=== PATIENT | female | born 1990 | race Caucasian/White ===

== ENCOUNTER 2022-08-10 14:04 | Outpatient (CLI) | payer OTHER, SELFPAY ==
[2022-08-10 19:09] LABS: Cholesterol* 152 mg/dL (90-199)
[2022-08-10 19:10] LABS: Glucose* 77 mg/dL (60-115); HDL Cholesterol* 63 mg/dL (>=50); LDL Cholesterol Calculated 78 mg/dL (<100); Triglycerides* 57 mg/dL (40-149)
[2022-08-10 20:59] LABS: Chlamydia DNA Amplified* NOT DETECTED (No Detected); GC DNA Amplified* NOT DETECTED (No Detected)
== END 2022-08-10 14:05 | disposition home or self-care (01) ==
PROVIDERS: Visit Provider Registered Nurse
DX: Z01.419 Encounter for gynecological examination (general) (routine) without abnormal findings (principal); R30.0 Dysuria; Z11.3 Encounter for screening for infections with a predominantly sexual mode of transmission; Z13.6 Encounter for screening for cardiovascular disorders; Z13.1 Encounter for screening for diabetes mellitus
CPT/HCPCS: 80061; 82947; 87086; 87491; 87591

== ENCOUNTER 2022-10-19 09:59 | Outpatient (CLI) | payer BC, SELFPAY ==
--- NOTE | 2022-10-19 10:00 | CRLHL7_ITS ---
For Patients: As a result of the Cures Act, medical imaging exams and procedure reports are released immediately into your electronic medical record. You may view this report before your referring provider. If you have questions, please contact your health care provider. Indication: SINUSITIS Technique: Performed without IV contrast Comparison: None available Findings: Frontal sinuses: Near complete opacification of the left frontal sinus and complete opacification of the diminutive right frontal sinus. Ethmoid sinuses: Near complete opacification of the ethmoid sinuses bilaterally. Maxillary sinuses: Near complete opacification of both maxillary sinuses. The maxillary sinus drainage pathways are obstructed on both sides. Sphenoid sinuses: Moderate opacification of the right sphenoid sinus and mild mucosal thickening within the left sphenoid sinus. Obstructed sphenoethmoidal recesses. Nasal Cavity: Leftward deviation of the nasal septum with a left-sided nasal septal spur. Soft tissue density within the nasal cavity bilaterally. No TMJ abnormalities identified. The visualized portions of the orbits, intracranial contents and upper soft tissue neck are grossly negative. Impression: 1. Severe bilateral sinus disease with obstruction of the drainage pathways. 2. Leftward deviation of the nasal septum with a left-sided nasal septal spur and nasal polyps. Please note that all CT scans at this facility use dose modulation, iterative reconstruction, and/or weight-based dosing when appropriate to reduce radiation dose to as low as reasonably achievable. Dictated by Farzad Castillo MD @ 10/19/2022 11:24:59 AM (Electronically Signed)
== END 2022-10-19 10:00 | disposition home or self-care (01) ==
LOC: CT 10:00
PROVIDERS: Visit Provider Otolaryngology
DX: J32.9 Chronic sinusitis, unspecified (principal); J34.2 Deviated nasal septum
CPT/HCPCS: 70486

== ENCOUNTER 2022-12-28 11:09 | Day surgery (SDC) | payer BC, SELFPAY ==
[2022-12-28] VITALS (14 sets, daily range): BP systolic 112–140; BP diastolic 69–100; PULSE 67–87; RESP 12–18; TEMP 36.3–36.6; O2SAT 94–100; BMI 26.3
[2022-12-28] MEDS: LACTATED RINGERS 1000 ML 1,000 ML 100 ML IV (06:50)
[2022-12-28 11:39] LABS: HCG Qualitative* Negative (Negative)
--- NOTE | 2022-12-28 11:42 | W.ANESCHARGE ---
Anesthesia Charges Start Date/Time Anesthesia Start Date: 12/28/22 Anesthesia Start Time: 12:42 Stop Date/Time Anesthesia Stop Date: 12/28/22 Anesthesia Stop Time: 13:46
[2022-12-28] MEDS: SODIUM CHLORIDE 0.9 % (FLUSH) 10 ML SYRINGE IVF (11:49)
[2022-12-28] MEDS: OXYMETAZOLINE 0.05% NASAL SPRAY 2 SPRAY NOSTRIL-B (12:09)
--- NOTE | 2022-12-28 12:55 | SUR.OPER ---
PATIENT QUESTIONS ANSWERED SATISFACTORILY PREOPERATIVELY. PATIENT BROUGHT TO OR #2 PER CART. Patient positioned supine on OR #2 bed. Perioperative team tucked arms bilaterally at patient side with drawsheet. ? Final approval of positioning by surgeon.
[2022-12-28] MEDS: COCAINE HCL 4 % 4 ML SOLUTION NOSTRIL-B (13:00)
[2022-12-28] MEDS: BUPIVACAINE 0.5%/EPINEPHRINE 0.9 MG (30.9 ML) INJECTION (13:01)
[2022-12-28] MEDS: MUPIROCIN 1 GM PACKET 1 APPLIC TOPICAL (13:03)
--- NOTE | 2022-12-28 13:47 | W.ANESCHARGE ---
Anesthesia Charges Start Date/Time Anesthesia Start Date: 12/28/22 Anesthesia Start Time: 12:42 Stop Date/Time Anesthesia Stop Date: 12/28/22 Anesthesia Stop Time: 13:46
[2022-12-28] MEDS: fentaNYL 100 MCG/2 ML inj 50 MCG IVP ×2 (13:58→14:07)
--- NOTE | 2022-12-28 14:12 | P.ENTPROC_ITS ---
Procedure Note Date of procedure: 12/28/22 Procedure: Preop diagnosis septal deviation nasal obstruction inferior turbinate hypertrophy, nasal polyposis, pansinusitis. Postoperative diagnosis same. Procedure nasal septoplasty, submucous partial resection inferior turbinates, endoscopic bilateral nasal polypectomy, maxillary antrostomies with tissue removal, ethmoidectomies complete, sphenoidotomies, and bilateral frontal sinus balloon dilation. Note that the [employer] image guidance system and endoscopies was used throughout the procedure. After general endotracheal an anesthesia was induced the patient was prepped draped usual fashion and good registration was obtained. The nose was decongested and injected. A right hemitransfixion incision was made. Left anterior and posterior tunnels were created. A vertical incision was made to the cartilage and a right posterior tunnel created. The left area 4 5 impaction was resected by cutting above and below with an angle scissors and the piece was removed with the Pedro forceps. A large piece of this bone and cartilage was trimmed and returned to the posterior intraseptal space. The hemitransfixion was closed with 2 4-0 chromic sutures. Stab incision was made in the anterior of the right inferior turbinate a tunnel created with a Winkler dissector. The carl bone was outfractured and a conservative anterior submucous resection performed with Amni forceps. The Coblation was used to cauterize intramurally along the inferior 10%. This was repeated on the left side in identical fashion. Attention was then turned to the left side of the nose. Several visible polyps at the middle meatal region were removed. The inferior 3rd of the uncinate process was taken down and 9 mm antrostomy was created the maxillary sinus. This was a initially occluded by polypoid tissue which was removed. A moderate amount of polypoid tissue was removed from the area surrounding the os as well as the floor of the sinus. The ethmoid bulla was taken down and dissection carried out in an anterior to posterior direction removing all visible polyp tissue. Sphenoid sinus was entered again using image guidance and a large amount of inspissated mucus was aspirated. The frontal balloon was placed into the frontal recess and again using image guidance was guided into the frontal sinus. Dilation was obtained at the opening into the frontal sinus and then in the sinus itself. Inspissated mucus was removed from the os after this was done. Essentially all of the previous procedures were performed on the right side as well with similar findings and identical fashion. Septal stents were secured with 3-0 nylon suture. Merocel packing was placed in the middle meatus on each side. The patient procedure well was taken recovery in satisfactory condition. Blood loss during procedure was less than 25 mL. Surgeon: Arnold Ivy MD
[2022-12-28] MEDS: ACETAMINOPHEN 325 MG TABLET PO (15:19)
[2022-12-28] MEDS: IBUPROFEN 200 MG TABLET PO (15:19)
== END 2022-12-28 15:47 | disposition home or self-care (01) ==
LOC: OR 11:10
PROVIDERS: Anesthesiology; Visit Provider Otolaryngology
PROC: (CPT 31231; principal; 2022-12-28 12:30)
DX: J34.2 Deviated nasal septum (principal); J34.3 Hypertrophy of nasal turbinates; J33.0 Polyp of nasal cavity; J32.4 Chronic pansinusitis
CPT/HCPCS: 30520; 30140; 31237; 31267; 31253; 31287; 160; 84703; 88305; A9270; C1726; J0330; J1100; J2250; J2405; J2704; J3010; J7120

== ENCOUNTER 2024-11-11 13:38 | Outpatient (CLI) | payer BC, SELFPAY | END 2024-11-11 13:39 | disposition home or self-care (01) | LOC: NFLDREF 11-14 08:31 | PROVIDERS: Visit Provider Nurse Practitioner Family | DX: N30.90 Cystitis, unspecified without hematuria (principal); B96.20 Unspecified Escherichia coli [E. coli] as the cause of diseases classified elsewhere | CPT/HCPCS: 87086 ==

== ENCOUNTER 2025-03-15 09:46 | Emergency (ER) | payer BC, SELFPAY ==
--- OUTSIDE RECORDS SUMMARY | 2025-03-15 09:48 | XMS_ITS | Clinical Summary ---
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 One for home and one for car 2 Inhaler 2 4 Active pseudoephedrine (SUDAFED) 60 mg tabletIndicatio ns:Sinusitis Take 1 tablet by mouth every 6 hours if needed for Nasal Congestion. 30 tablet 0 4 Active fluticasone-flower meterol (ADVAIR DISKUS) 250-50 mcg/Dose diskus inhalerIndicati ons:Asthma flare, mild persistent Inhale 1 Puff by mouth every 12 hours. 1 Inhaler 5 5 Active triamcinolone (ARISTOCORT; KENALOG) 0.1 % creamIndication s:Atopic dermatitis and related condition Apply to affected area(s) topically twice daily 30 g 0 5 Active fluticasone (50 mcg per actuation) nasal solution (FLONASE)Indica tions:Allergic rhinitis, unspecified allergic rhinitis type Inhale 1 [place] into both nostrils once daily. 1 Bottle 5 5 Active norgestimate-et hinyl estradiol (TRINESSA) 0.18/0.215/0.25 mg-35 mcg (28) tabletIndicatio ns:Contraceptio n Take 1 tablet by mouth once daily. Continuously x 3 months, then withdrawal bleeding week, and restart cycle. 3 Package 0 6 Active Active Problems Problem Noted Date Diagnosed Date Asthma 09/29/2013 Viral warts, unspecified 05/13/2007 Other atopic dermatitis and related conditions 0 04/22/2007 Attention deficit disorder without mention of hy peractivity 11/27/2005 Overview (11/27/2005): Attention Deficit Disorder OTITIS EXTERNA 03/14/2005 ATTENTION DEFICIT DISORDER 12/04/1999 Resolved Problems Problem Noted Date Diagnosed Date Resolved Date Regular astigmatism 03/22/2006 05/27/20 08 Myopia 03/22/2006 11/10/2012 PHARYNGITIS - ACUTE 05/02/2005 03/27/20 24 Immunizations Immunization Administration Dates Next Due DTP 04/22/1992,04/07/1991,02/04/1991 ,1990 DTaP 11/07/1995 HIB PRP-OMP (PedvaxHIB) 10/09/1993,04/07/1991,,1990 Hepatitis B (Peds) 11/29/1994,06/29/1994, 994 Human Papilloma Virus Vaccine 10/24/2007, 007,04/22/2007 Influenza, IIV3 (Age >=3 years) 09/29/2013,07/01,07/01/2007 Influenza, IIV4 06/28/2015,07/12/2014 MMR 11/16/2002,01/12/1992 Meningococcal Vaccine (Menactra) 04/22/2007 Oral Polio Vaccine 11/07/1995,04/07/1991, 991,1990 Td (Age >=7 Years) 11/16/2002 Tdap 09/29/2013 Family History Medical History Relation Name Comments Genetic Other diabetes - gran dfather~thyroid-mother Relation Name Status Comments Other Social History Tobacco Use Types Packs/Day Years Used Date Smoking Tobacco: Some Days Cigarettes Smokeless Tobacco: Never Tobacco Cessation:Ready to Q uit: Yes; Counseling Given: Yes Comments:Dad smokes outside Alcohol Use Standard Drinks/Week Comments Yes 0 (1 standard drink = 0.6 oz pur e alcohol) Social Comments No Sex and Gender Information Value Date Recorded Sex Assigned at Not on file Legal Sex Female 5:19 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 Gender Identity Not on file Sexual Orientation Not on file Obstetrics History Last Filed Vital Signs Vital Sign Reading Time Taken Comments Blood Pressure 110/68 07/22/2015 10:30 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 Pulse 78 07/22/2015 10:30 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 Temperature 36.8 C (98.3 F) 07/12/2014 1:50 PM WEB ANALYTICS SPECIALIST Respiratory Rate 16 12/08/2002 12:0 0 AM CDT Oxygen Saturation 99% 07/12/2014 1:50 PM WEB ANALYTICS SPECIALIST Inhaled Oxygen Concentration - - Weight 49.4 kg (108 lb 14.4 oz) 06/28/2015 8:20 AM CDT Height 165.1 cm (5' 5) 09/29/2013 12:5 0 PM WEB ANALYTICS SPECIALIST Body Mass Index 18.12 09/29/2013 12:50 PM WEB ANALYTICS SPECIALIST Plan of Treatment Health Maintenance Due Date Last Done Comments Depression screening for age 12+ 2002 HIV for age 15-65 2005 BMI (ht and wt on same day) for age 18+ 2008 Hepatitis C screening for age 18-79 2008 Tetanus booster 09/29/2023 09/29/2013, 11/16/2002 Pap test for age 21-65 11/26/2023 , 11/25/2020, 04/01/2013 ([facility] COVID-19 vaccine series ( season) 2024 Influenza Vaccine (#1) 2025 5, 07/12/2014, 09/29/2013, Additional history exists Hepatitis B series for 19+ Completed 11/29, 06/29/1994, 05/31/1994 Pneumococcal series for age 6-49 Aged Out No longer eligible based on patient's age to complete this topic Procedures Procedure Name Priority Date/Time Associated Diagnosis Comments ROOM COOLER INSTALLER THIN PREP PAP SCREEN IMAGED Routine 11/25/2020 12:00 PM CDT from Last 3 Months or Most Recently Relevant to Health Maintenance Results * ROOM COOLER INSTALLER THIN PREP PAP SCREEN IMAGED (11/25/2020 12:00 PM CDT) Case Report Gynecologic Cytology Report Case: [id number] Authorizing Provider: Madonna Solorzano CNM Collected: 11/25/2020 1200 Ordering Location: [facility] Received: 11/28/2020 0946 First Screen: Jeimy Lim Specimen: ROOM COOLER INSTALLER ThinPrep Vial Screening, Cervical/Vaginal 12/06/2020 11:46 AM CDT [facility] INTERPRETATION/ RESULT NEGATIVE FOR INTRAEPITHELIAL LESION OR MALIGNANCY (NIL) (none) 12/06/2020 11:46 AM CDT [facility] [employer] [facility] ENTRAL LABORATORY at 1146 CDT SPECIMEN ADEQUACY Satisfactory for evaluation Endocervical component present 12/06/2020 11:46 AM CDT [facility] [employer] [facility] HPV REQUEST HPV and PAP 12/06/2020 11:46 AM CDT [facility] [employer] [facility] Date of LMP 09/14/2020 12/06/2020 11:46 AM CDT [facility] [employer] [facility]ORY Menstrual Status 12/06/2020 11:46 AM CDT [facility] Additional Information 12/06/2020 11:46 AM CDT [facility] Comment: Interpreted at [facility], Central Laboratory - [address] [address] Automated Review Successful 12/06/2020 11:46 AM CDT [facility] [employer] [facility] Comment:Specimen processed s uccessfully by automated machining department supervisor device, ThinPrep Imaging System, [employer] ANCILLARY TESTING ROOM COOLER INSTALLER HPV Ordered, Please see separate report 12/06/2020 11:46 AM CDT [facility] Note The pap test is a screening technique, not a diagnostic procedure. It is used primarily to screen for squamous cancers and precursor lesions. Published studies have shown that it is subject to both false negative and false positive results. The pap test should not be used as the sole means to diagnose or exclude pre-malignant and malignant lesions. 12/06/2020 11:46 AM CDT [facility] Other (Cervical/Vagina l) 11/25/2020 12:00 PM CDT 11/28/2020 9:46 AM CDT us Madonna Solorzano CNM PATHOLOGY/CYTOLOGY Final Re sult [facility] [address] [place] [address], [place] from Last 3 Months or Most Recently Relevant to Health Maintenance Insurance 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 PCP - General 12/13/16
[2025-03-15 10:10] VITALS: BP 128/86; PULSE 77; RESP 16; TEMP 36.4; O2SAT 97; BMI 27.9
--- NOTE | 2025-03-15 10:18 | CRLHL7_ITS ---
For Patients: As a result of the Cures Act, medical imaging exams and procedure reports are released immediately into your electronic medical record. You may view this report before your referring provider. If you have questions, please contact your health care provider. INDICATION: fall from standing on wrist x2days ago; wrist pain, swelling. (Sic) COMPARISON: None available. TECHNIQUE: Three views of the right wrist. FINDINGS: Mineralization: Normal. Alignment: Normal. Bones and Joints: No fracture is identified. Soft Tissues: Unremarkable. IMPRESSION: No acute traumatic injury of the right wrist is identified. Dictated by Dung Mclean MD @ 03/15/2025 10:48:00 AM (Electronically Signed)
--- NOTE | 2025-03-15 10:26 | CRLHL7_ITS ---
For Patients: As a result of the Cures Act, medical imaging exams and procedure reports are released immediately into your electronic medical record. You may view this report before your referring provider. If you have questions, please contact your health care provider. INDICATION: fall from standing on wrist x2days ago; wrist pain, swelling. (Sic) COMPARISON: None available. TECHNIQUE: Three views of the right hand. FINDINGS: Mineralization: Normal. Alignment: Normal. Bones and Joints: No fracture is identified. Soft Tissues: Soft tissue swelling is seen overlying the dorsal metacarpals on the lateral view. Correlation with clinical exam findings is recommended. IMPRESSION: Soft tissue swelling is seen overlying the dorsal metacarpals on the lateral view. Correlation with clinical exam findings is recommended. No acute traumatic injury is otherwise identified. Dictated by Dung Mclean MD @ 03/15/2025 10:47:21 AM (Electronically Signed)
--- NOTE | 2025-03-15 10:27 | ED_ITS ---
HPI - Extremity Injury (Upper) General Date Seen: 03/15/25 Chief Complaint: Extremity Pain/Injury, Upper Stated Complaint: right hand possible sprained Time Seen by Provider: 03/15/25 10:23 Source: patient Mode of arrival: ambulatory Limitations: no limitations History of Present Illness HPI narrative: Patient is a 34-year-old female presenting for right wrist and hand pain. States 2 days ago she tripped and fell onto a concrete driveway. She has been using [id number] medications and ice continues to have pain to the area. Is not gotten any better. She is concerned she could have a fracture so she came in for evaluation. Does have some numbness to the 4th and 5th digit but is able to move her hand. Most of the pain to the wrist as the volar aspect of the ulnar side of the wrist. Is also having some pain to the 5th metacarpal. Hand is obviously swollen. No other concerns noted. Related Data Home Medications ?Medication ?Instructions ?Recorded ?Confirmed albuterol sulfate 90 mcg/actuation 1 puff inhalation O NCE 08/10/22 03/15/25 aerosol inhaler hydrocortisone 2.5 % topical cream 1 applic topical DA JHONNY PRN 03/27/24 03/15/25 Allergies Allergy/AdvReac Type Severity Reaction Status Date / Time nickel Allergy Unknown Rash Verified 03/15/25 10:08 Review of Systems Narrative: Pertinent systems reviewed and were negative unless stated in HPI PFSH PFSH Medical History Visual disturbance (10/21/12) ?H53.9 - Unspecified visual disturbance (ICD-10) Vaginal delivery ?O80 - Encounter for full-term uncomplicated delivery (ICD-10) Syncope (10/21/12) ?R55 - Syncope and collapse (ICD-10) Surgical History H/O wisdom tooth extraction ?K08.409 - Partial loss of teeth, unspecified cause, unspecified class (ICD- 10) Family History Maternal Grandfather Diabetes Heart disease Colon cancer Paternal Grandfather Lung cancer Paternal Grandmother Lung cancer Social History Smoking Status: Never smoker Do you use any of these nicotine containing products: None How often do you have a drink containing alcohol: monthly or less Alcohol type: hard liquor How many standard drinks containing alcohol do you have on a typical day: 1 or 2 How often do you have six or more drinks on one occasion: Never AUDIT-C Alcohol total score: 1 Non-prescribed substance use: denies use Caffeine: Yes (coffee) Are you using contraception or practicing any form of control: Yes Exam Narrative: Exam Narrative: Const: Well-nourished, Well-developed, in mild distress Eyes: PERRL, no conjunctival injection, and symmetrical lids HENT: Atraumatic external nose and ears. Moist mucous membranes. CVS: Radial pulses 2+ bilaterally MSK: Decreased range of motion to right digit secondary to pain but is able to move them all. There is tenderness to palpation to the right 5th metacarpal and right volar/ulnar aspect of the wrist. Obvious swelling to the dorsal aspect of the hand Skin: Warm, Dry. No rashes or lesions. Neuro: Normal Muscle tone, No focal neurological deficits. Psych: Awake, Alert, & Oriented x3. Appropriate mood and affect. Const: Vital Signs, click to edit/add: Vital Signs - 24 hr 03/15/25 10:10 Temperature 97.5 F L Pulse Rate [Pulse Oximeter] 77 Respiratory Rate 16 Blood Pressure [Le ft Upper Arm] 128/86 Pulse Oximetry 97 Oxygen Delivery Me thod Room Air Course Vital Signs Vital signs: Initial Vital Signs Temperature 97.5 F L 03/15/25 10:10 Temperature Source Temporal Artery Scan 03/15/25 10:10 Pulse Rate 77 03/15/25 10:10 Pulse Rhythm Regular 03/15/25 10:10 Respiratory Rate 16 03/15/25 10:10 Blood Pressure 128/86 03/15/25 10:10 Blood Pressure Mean 100 03/15/25 10:10 Blood Pressure Position Sitting 03/15/25 10:10 Pulse Oximetry 97 03/15/25 10:10 Oxygen Delivery Method Room Air 03/15/25 10:10 Vital Signs Temperature 97.5 F L 03/15/25 10:10 Pulse Rate 77 03/15/25 10:10 Respiratory Rate 16 03/15/25 10:10 Blood Pressure 128/86 03/15/25 10:10 Pulse Oximetry 97 03/15/25 10:10 Oxygen Delivery Method Room Air 03/15/25 10:10 Temperature 97.5 F L 03/15/25 10:10 Pulse Rate 77 03/15/25 10:10 Respiratory Rate 16 03/15/25 10:10 Blood Pressure 128/86 03/15/25 10:10 Pulse Oximetry 97 03/15/25 10:10 Oxygen Delivery Method Room Air 03/15/25 10:10 MDM - Extremity Injury (Upper) MDM Narrative Medical decision making narrative: Patient is a 34-year-old female presenting for right wrist and hand pain. Does have some decreased sensation to the 4th and 5th digits but otherwise is neurovascular intact. Will do an x-ray of the right wrist and hand. X-rays came back showing no acute abnormalities. She is doing well at this time will be discharged. Likely is having a hand sprain. She is agreeable to this plan Imaging Data Right wrist x-ray: Attestation: I have reviewed the pertinent imaging results. Radiologist's impression: No acute traumatic injury of the right wrist is identified. Dictated by Dung Mclean MD @ 03/15/2025 10:48:00 AM Right hand x-ray: Attestation: I have reviewed the pertinent imaging results. Radiologist's impression: Soft tissue swelling is seen overlying the dorsal metacarpals on the lateral view. Correlation with clinical exam findings is recommended. No acute traumatic injury is otherwise identified. Dictated by Dung Mclean MD @ 03/15/2025 10:47:21 AM Discharge Plan Discharge Clinical Impression: Sprain and strain of right hand Patient Disposition: Home, Self-Care Condition: Stable Instructions: Wrist Sprain (ED) Additional Instructions: Take Tylenol and ibuprofen for your pain. You can use a wrist brace for your wrist and hand pain or you can continue to use the Erich wrap. Prescriptions: No Action albuterol sulfate 90 mcg/actuation HFA aerosol inhaler 1 puff inhalation ONCE hydrocortisone 2.5 % cream 1 applic topical DAILY PRN Follow Up/Referrals: Provider,Not a Local [Primary Care Provider, Family Practice] Stand Alone Forms: [employer] Info Instructions
== END 2025-03-15 11:34 | disposition home or self-care (01) ==
LOC: ED 11:25
PROVIDERS: Emergency Provider Student in an Organized Health Care Education/Training Program
DX: S63.8X1A Sprain of other part of right wrist and hand, initial encounter (principal); W01.198A Fall on same level from slipping, tripping and stumbling with subsequent striking against other object, initial encounter; Y93.01 Activity, walking, marching and hiking; Y92.014 Private driveway to single-family (private) house as the place of occurrence of the external cause
CPT/HCPCS: 73110; 73130; 99283